=== PATIENT | female | born 1975 | race Caucasian/White ===

== ENCOUNTER 2016-05-28 17:01 | Emergency (ER) | payer BC ==
[~2016-05-28] VITALS: Ht 157.5 cm; Wt 75.4 kg
[2016-05-28 17:01] VITALS: TEMP 36.9; Ht 157.5 cm; Wt 75.4 kg
[~2016-05-28 17:01] MED LIST: ATV/1 PO; CLX20 PO; DIVA250T4 PO; PANT40TA PO; TRAZ50TA35 PO
[2016-05-28 17:14] VITALS: O2SAT 100
[2016-05-28] MEDS ORDERED: HYDROmorphone INJ 1 MG/ML SYR IV STA (17:22)
[2016-05-28 17:30] LABS: BASO % 1.5 %; BASO ABS # 0.11 K/uL (0-0.2); COMPLETE YES; EOS % 1.5 %; HEMATOCRIT 40.5 % (37-47); IG% 0.1 %; LYMPH % 39.7 %; LYMPH ABS # 2.96 K/uL (1.2-3.4); MEAN CELL VOLUME 97.1 fL (80-100); MEAN CORPUSCULAR HEMOGLOBIN 33.1 pg (25-34); MEAN CORPUSCULAR HGB CONC 34.1 g/dl (32-36); MEAN PLATELET VOLUME 10.4 fL (7.4-10.4); MONO % 5.1 %; NEUT % 52.1 %; PLATELET COUNT 329 K/uL (130-400); RED BLOOD COUNT 4.17 M/uL (4.2-5.4); WHITE BLOOD COUNT 7.45 K/uL (4.8-10.8)
--- NOTE | 2016-05-28 17:31 | EMERGENCY ROOM VISIT NOTE ---
History Report prepared by Sujit: Aniya Grey Under the Supervision of: Dr. Dolly Galvan D.O. First contact with patient: 17:12 Chief Complaint: CHEST PAIN Stated Complaint: HEADACHE, CHEST PAIN Nursing Triage Summary: Patient c/o of intermittent pain which started today at 1:30 pm. Pain radiates to back. Chest pain is reproducible with coughing. Patient c/o of stabbing-like headache and dizziness which began on " or Friday." Denies hx of CAD or AL. 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 The patient currently rates the pain as a 8/10 in severity. The patient states that today during work the chest pain began along with shortness of breath and back pain. The patient states that she had some unusual symptoms starting 4 days ago which included "ice pick" headaches and trouble speaking including not being able to get out the words she was trying to say. The patient states she originally thought her symptoms were stress and anxiety related due to work but states over the weekend and at work today she was not stressed. The patient states she has a history of migraines but states her headache the last few days has feel like an "ice pick which is unusual for her. The patient states she takes Celexa and Depakote for her headaches and has been taking it regularly but it has not helped her headache today. The patient denies any abdominal pain, leg cramping, leg swelling. The patient denies any chance of and states she had a hysterectomy 13 years ago. Source of History: patient Onset: 4 hours MECHANICAL SYSTEMS DESIGNER Position: chest Symptom Intensity: 8/10 Timing: intermittent Associated Symptoms: + SOB, + back pain, + headache ("ice pick"), No abdominal pain Note: Associated symptoms: trouble speaking. Patient denies leg cramping, leg swelling. Review of Systems See HPI for pertinent positives & negatives. A total of 10 systems reviewed and were otherwise negative. Past Medical & Surgical Medical Problems: (1) Abdominal pain (2) Degenerative disc disease (3) Headache (4) Lyme Disease (5) Migraine (6) Urinary tract infection Family History Cancer Diabetes mellitus FH: gallbladder disease FH: lung disease Heart disease Hypertension Kidney stones Social History Smoking Status: Current Every Day Smoker Alcohol Use: occasionally Marital Status: single Housing Status: lives with family Occupation Status: employed Current/Historical Medications Scheduled Citalopram (Citalopram Hydrobromide), 40 MG PO DAILY Divalproex Sodium (Divalproex Sodium ER), 750 MG PO HS Pantoprazole (Protonix), 40 MG PO DAILY Scheduled PRN Trazodone Hcl (Trazodone), 100 MG PO HS PRN for Sleep Allergies Coded Allergies: Ketorolac Tromethamine (Verified Allergy, Intermediate, HIVES, 05/28/16) Physical Exam Vital Signs Date Time Temp Pulse Resp B/P Pulse Ox O2 Delivery O2 Flow Rate FiO2 05/28/16 19:35 64 16 108/64 97 Room Air 05/28/16 18:19 67 18 119/76 96 Room Air 05/28/16 17:43 67 18 115/84 97 Room Air 05/28/16 17:21 67 05/28/16 17:14 100 Room Air 05/28/16 17:01 97 Room Air 05/28/16 17:01 36.9 66 14 138/84 97 Room Air Physical Exam HEENT: Head - normocephalic and atraumatic Pupils are equal, round, and reactive to light. Extraocular eye muscles are intact, and sclera are anicteric. Nose - moist nasal mucosa without discharge. Mouth - moist buccal mucosa. Oropharynx is nonerythematous and there is no tonsillar exudate or edema noted. Neck: Supple; no JVD, nuchal rigidity, cervical lymphadenopathy, or auscultated bruits. Heart: Regular rate and rhythm. There is a normal S1 and S2 with no murmurs, clicks, or gallops appreciated. Lungs: Clear to auscultation bilaterally with no wheezes, rales, or rhonchi. Abdomen: Soft, completely nontender, nondistended, with good bowel sounds. There are no palpable pulsatile masses or hepatosplenomegaly. There is no guarding, rigidity, or rebound noted. Extremities: No evidence of cyanosis, clubbing, or edema. There are easily palpable peripheral pulses. Skin: warm and dry with good turgor and no rashes. Neuro: Awake, alert and oriented to day time and place. The exam is nonfocal. Medical Decision & Procedures ER Provider Diagnostic Interpretation: CT results as stated below per my review and radiologist interpretation: CT SCAN OF THE BRAIN WITHOUT IV CONTRAST CLINICAL HISTORY: Headache. COMPARISON STUDY: CT of the brain dated 06/13/2013. TECHNIQUE: Unenhanced axial CT scan of the brain is performed from the vertex to the skull base. Automated dose control exposure was utilized. CT DOSE: 601.98 mGy.cm FINDINGS: Brain parenchyma: The brain parenchyma is normal in appearance. There is no hemorrhage, mass effect, or evidence of acute territorial ischemia by CT criteria. Gonzalez-white matter is preserved. No extra-axial fluid collection is seen. Ventricles, sulci, cisterns: Normal in configuration. Intracranial vasculature: The visualized intracranial vasculature at the skull base is normal in appearance. Calvarium: Unremarkable. Sinuses and mastoids: The visualized paranasal sinuses are clear. The mastoid air cells are well pneumatized. Orbits: The bony orbits are grossly intact. IMPRESSION: No acute intracranial abnormality. Electronically signed by: Jovan Negron M.D. 05/28/2016 6:01 PM Dictated Date/Time: 05/28/2016 6:00 PM X-ray results as stated below per interpretation by me and the radiologist: SINGLE VIEW CHEST CLINICAL HISTORY: Atypical chest pain. FINDINGS: An AP, portable, upright chest radiograph is compared to study dated 12/31/2015. The cardiomediastinal silhouette is unremarkable. Emphysema and chronic interstitial thickening are similar to previous. There is no airspace consolidation or pleural effusion. No pneumothorax is seen. The bony thorax is grossly intact. Fusion hardware is noted in the lower cervical spine. IMPRESSION: Emphysema with no acute cardiopulmonary abnormality. Electronically signed by: Jovan Negron M.D. 05/28/2016 6:06 PM Dictated Date/Time: 05/28/2016 6:05 PM Laboratory Results 05/28/16 17:14 Red Blood Count 4.17, Mean Corpuscular Volume 97.1, Mean Corpuscular Hemoglobin 33.1, Mean Corpuscular Hemoglobin Concent 34.1, Mean Platelet Volume 10.4, Neutrophils (%) (Auto) 52.1, Lymphocytes (%) (Auto) 39.7, Monocytes (%) (Auto) 5.1, Eosinophils (%) (Auto) 1.5, Basophils (%) (Auto) 1.5, Neutrophils # (Auto) 3.88, Lymphocytes # (Auto) 2.96, Monocytes # (Auto) 0.38, Eosinophils # (Auto) 0.11, Basophils # (Auto) 0.11 05/28/16 17:14 Test 05/28/16 17:14 05/28/16 18:00 White Blood Count 7.45 K/uL (4.8-10.8) Red Blood Count 4.17 M/uL (4.2-5.4) Hemoglobin 13.8 g/dL (12.0-16.0) Hematocrit 40.5 % (37-47) Mean Corpuscular Volume 97.1 fL (80-100) Mean Corpuscular Hemoglobin 33.1 pg (25-34) Mean Corpuscular Hemoglobin Concent 34.1 g/dl (32-36) Platelet Count 329 K/uL (130-400) Mean Platelet Volume 10.4 fL (7.4-10.4) Neutrophils (%) (Auto) 52.1 % Lymphocytes (%) (Auto) 39.7 % Monocytes (%) (Auto) 5.1 % Eosinophils (%) (Auto) 1.5 % Basophils (%) (Auto) 1.5 % Neutrophils # (Auto) 3.88 K/uL (1.4-6.5) Lymphocytes # (Auto) 2.96 K/uL (1.2-3.4) Monocytes # (Auto) 0.38 K/uL (0.11-0.59) Eosinophils # (Auto) 0.11 K/uL (0-0.5) Basophils # (Auto) 0.11 K/uL (0-0.2) RDW Standard Deviation 45.5 fL (36.4-46.3) RDW Coefficient of Variation 13.0 % (11.5-14.5) Immature Granulocyte % (Auto) 0.1 % Immature Granulocyte # (Auto) 0.01 K/uL (0.00-0.02) Anion Gap 7.0 mmol/L (3-11) Est Creatinine Clear Calc Drug Dose 75.6 ml/min Estimated GFR () 88.0 Estimated GFR (Non- 75.9 BUN/Creatinine Ratio 9.6 (10-20) Calcium Level 8.8 mg/dl (8.5-10.1) Total Bilirubin 0.2 mg/dl (0.2-1) Direct Bilirubin < 0.1 mg/dl (0-0.2) Aspartate Amino Transf (AST/SGOT) 8 U/L (15-37) Alanine Aminotransferase (ALT/SGPT) 17 U/L (12-78) Alkaline Phosphatase 65 U/L (45-117) Total Creatine Kinase 46 U/L (26-192) Creatine Kinase MB < 0.5 ng/ml (0.5-3.6) Creatine Kinase MB Ratio (0-3.0) Troponin I < 0.015 ng/ml (0-0.045) Total Protein 7.2 gm/dl (6.4-8.2) Albumin 3.6 gm/dl (3.4-5.0) D-Dimer < 190 ug/L FEU (0-500) Laboratory results per my review. Medications Administered Medications (Trade) Dose Ordered Sig/Monique Route Start Time Stop Time Status Last Admin Dose Admin Hydromorphone HCl (Dilaudid Inj) 1 mg NOW STAT IV 05/28/16 17:22 05/28/16 17:25 DC 05/28/16 17:42 1 MG Prochlorperazine Edisylate (Compazine Inj) 10 mg NOW STAT IV 05/28/16 18:22 05/28/16 18:24 DC 05/28/16 18:52 10 MG Diphenhydramine HCl (Benadryl Inj) 25 mg NOW STAT IV 05/28/16 18:22 05/28/16 18:24 DC 05/28/16 18:52 25 MG Acetaminophen (Tylenol Tab) 1,000 mg NOW STAT PO 05/28/16 18:22 05/28/16 18:24 DC 05/28/16 18:53 1,000 MG Procedure Medications Administered: Hydromorphone HCl Acetaminophen Diphenhydramine HCl Prochlorperazine Edisylate ECG Indication: chest pain Rate (beats per minute): 68 Rhythm: normal sinus Findings: no acute ischemic change, no ectopy ED Course 8: Past medical records reviewed. The patient was evaluated in room A3. A complete history and physical exam was performed. An IV lock was initiated and labs were drawn as above. 1721: Ordered Dilaudid Inj 1 mg IV. The patient went for a CT scan of her brain which was unremarkable. 1818: The nursing staff states that the patient is now nauseous and is still having pain. 1821: Ordered Tylenol Tab 1,000 mg PO, Benadryl Inj 25 mg IV, Compazine Inj 10 mg IV. 1909: Upon reevaluation, the patient was sleeping, and after waking her, she states she is feeling much better. I discussed findings and results with her. She verbalized agreement of the treatment plan. The patient was discharged home. Medical Decision The patient is a 40 year old female who presents to the ED with chest pain. Differential diagnosis includes CVA, TIA, anxiety, PE, aortic dissection, cardiac ischemia, pleurisy, migraine and intracranial hemorrhage. Labs: Negative D-Dimer Normal white count Stable H&H Negative cardiac enzymes Normal LFTs Glucose 109 Normal renal function This is a 40-year-old female patient who presents to the emergency department with chest pain, back pain, shortness of breath, and headache. The patient has a history of migraines but states that this headache was different. She described as a stabbing pain. She then became concerned with intermittent episodes of chest pain, back pain, and shortness of breath. She also noticed that she was having difficulty with expressing herself. CT scan of the brain was unremarkable. Her neuro exam was normal here. Chest x-ray showed no evidence of wide mediastinum. She had no stroke symptoms or TIA symptoms while here in the emergency department. I've asked the patient to follow-up with her PCP tomorrow for a recheck if her symptoms persisted. Impression Primary Impression: Headache Additional Impression: Atypical chest pain Scribe Attestation The scribe's documentation has been prepared under my direction and personally reviewed by me in its entirety. I confirm that the note above accurately reflects all work, treatment, procedures, and medical decision making performed by me. Departure Information Dispostion Home / Self-Care Referrals Renny Oakes M.D. (PCP) Forms HOME CARE DOCUMENTATION FORM, IMPORTANT VISIT INFORMATION Patient Instructions My [facility] Additional Instructions Return to the ER if symptoms worsen Rest. Limit stress and anxiety. Follow up tomorrow with your PCP for a recheck if you continue to have chest/ back pain or headache Problem Qualifiers
[2016-05-28 17:40] LABS: ALT/SGPT 17 U/L (12-78); AST/SGOT 8 U/L (15-37); BLOOD UREA NITROGEN 9 mg/dl (7-18); BUN/CREATININE RATIO 9.6 (10-20); CALCIUM 8.8 mg/dl (8.5-10.1); CARBON DIOXIDE 27 mmol/L (21-32); CHLORIDE 107 mmol/L (98-107); CREATININE 0.94 mg/dl (0.60-1.20); GLUCOSE 109 mg/dl (70-99); POTASSIUM 3.9 mmol/L (3.5-5.1); SODIUM 141 mmol/L (136-145)
[2016-05-28] MEDS ORDERED: CLX40 PO (17:45)
[2016-05-28] MEDS ORDERED: DPKSR250 PO (17:45)
[2016-05-28 17:46] LABS: ALKALINE PHOSPHATASE 65 U/L (45-117)
--- NOTE | 2016-05-28 18:03 | DIAGNOSTIC IMAGING REPORT ---
CT SCAN OF THE BRAIN WITHOUT IV CONTRAST CLINICAL HISTORY: Headache. COMPARISON STUDY: CT of the brain dated 06/13/2013. TECHNIQUE: Unenhanced axial CT scan of the brain is performed from the vertex to the skull base. Automated dose control exposure was utilized. CT DOSE: 601.98 mGy.cm FINDINGS: Brain parenchyma: The brain parenchyma is normal in appearance. There is no hemorrhage, mass effect, or evidence of acute territorial ischemia by CT criteria. Gonzalez-white matter is preserved. No extra-axial fluid collection is seen. Ventricles, sulci, cisterns: Normal in configuration. Intracranial vasculature: The visualized intracranial vasculature at the skull base is normal in appearance. Calvarium: Unremarkable. Sinuses and mastoids: The visualized paranasal sinuses are clear. The mastoid air cells are well pneumatized. Orbits: The bony orbits are grossly intact. IMPRESSION: No acute intracranial abnormality. Electronically signed by: Jovan Negron M.D. 05/28/2016 6:01 PM Dictated Date/Time: 05/28/2016 6:00 PM
--- NOTE | 2016-05-28 18:08 | DIAGNOSTIC IMAGING REPORT ---
SINGLE VIEW CHEST CLINICAL HISTORY: Atypical chest pain. FINDINGS: An AP, portable, upright chest radiograph is compared to study dated 12/31/2015. The cardiomediastinal silhouette is unremarkable. Emphysema and chronic interstitial thickening are similar to previous. There is no airspace consolidation or pleural effusion. No pneumothorax is seen. The bony thorax is grossly intact. Fusion hardware is noted in the lower cervical spine. IMPRESSION: Emphysema with no acute cardiopulmonary abnormality. Electronically signed by: Jovan Negron M.D. 05/28/2016 6:06 PM Dictated Date/Time: 05/28/2016 6:05 PM
[2016-05-28] MEDS ORDERED: DiphenhydrAMINE HCL 50 MG/ML VIAL IV STA (18:22)
[2016-05-28] MEDS ORDERED: ACETAMINOPHEN 500 MG TAB PO STA (18:22)
[2016-05-28] MEDS ORDERED: PROCHLORPERAZINE 5 MG/ML 2 ML VIAL IV STA (18:22)
[2016-05-28 19:35] VITALS: BP 108/64; PULSE 64; O2SAT 97
== END 2016-05-28 19:36 | disposition home or self-care (01) ==
LOC: EDBD 17:01 → C.EDA 17:02
DX: R51 Headache (principal); R07.89 Other chest pain; Z83.3 Family history of diabetes mellitus; Z82.49 Family history of ischemic heart disease and other diseases of the circulatory system; F17.200 Nicotine dependence, unspecified, uncomplicated; J43.9 Emphysema, unspecified

== ENCOUNTER 2016-08-16 21:28 | Emergency (ER) | payer BC ==
[~2016-08-16] VITALS: Ht 157.5 cm; Wt 72.3 kg
[~2016-08-16 21:28] MED LIST changes: -ATV/1 PO; -CLX20 PO; +CLX40 PO; -DIVA250T4 PO; +DPKSR250 PO
[2016-08-16 21:29] VITALS: TEMP 36.8; Ht 157.5 cm; Wt 72.3 kg
[2016-08-16 22:16] LABS: BASO % 1.5 %; BASO ABS # 0.12 K/uL (0-0.2); COMPLETE YES; EOS % 1.5 %; HEMATOCRIT 39.1 % (37-47); IG% 0.1 %; LYMPH % 49.6 %; LYMPH ABS # 4.02 K/uL (1.2-3.4); MEAN CORPUSCULAR HEMOGLOBIN 32.7 pg (25-34); MEAN CORPUSCULAR HGB CONC 34.8 g/dl (32-36); MEAN PLATELET VOLUME 10.5 fL (7.4-10.4); MONO % 7.5 %; NEUT % 39.8 %; PLATELET COUNT 352 K/uL (130-400); RED BLOOD COUNT 4.16 M/uL (4.2-5.4); WHITE BLOOD COUNT 8.11 K/uL (4.8-10.8)
[2016-08-16 22:25] LABS: URINE APPEARANCE CLEAR (CLEAR); URINE BILIRUBIN NEG (NEG); URINE COLOR YELLOW; URINE NITRITE NEG (NEG); URINE PH 7.5 (4.5-7.5); URINE SPECIFIC GRAVITY 1.009 (1.000-1.030); UROBILINOGEN NEG (NEG); ZZUR CULT IF INDIC CLEAN CATCH NO
[2016-08-16 22:28] LABS: MANUAL MICROSCOPIC REQUIRED? NO; REVIEW REQ? NO
[2016-08-16] MEDS ORDERED: ONDANSETRON INJ 2 MG/ML 2 ML VIAL IV STA (22:28)
[2016-08-16] MEDS ORDERED: MoRPHine SULFATE 10 MG/ML CARP/VIAL IV STA (22:28)
[2016-08-16] MEDS ORDERED: SODIUM CHLORIDE 0.9% 1000ML 1,000 ML IV STA (22:28)
[2016-08-16 22:42] LABS: ALT/SGPT 36 U/L (12-78); BLOOD UREA NITROGEN 10 mg/dl (7-18); BUN/CREATININE RATIO 9.8 (10-20); CALCIUM 9.8 mg/dl (8.5-10.1); CARBON DIOXIDE 25 mmol/L (21-32); CHLORIDE 108 mmol/L (98-107); GLUCOSE 90 mg/dl (70-99); POTASSIUM 3.6 mmol/L (3.5-5.1); SODIUM 141 mmol/L (136-145)
[2016-08-16 22:45] LABS: ALKALINE PHOSPHATASE 80 U/L (45-117); AST/SGOT 19 U/L (15-37)
[2016-08-16] MEDS ORDERED: HYDROmorphone INJ 0.5 MG/0.5 ML SYR IV STA (23:37)
[2016-08-17] MEDS ORDERED: HYDROmorphone INJ 0.5 MG/0.5 ML SYR IV STA (00:11)
[2016-08-17] MEDS ORDERED: OXYC1TAB3 PO (00:12)
[2016-08-17] MEDS ORDERED: ONDA4TAB10 SL (00:12)
--- NOTE | 2016-08-17 00:13 | EMERGENCY ROOM VISIT NOTE ---
History First contact with patient: 21:48 Chief Complaint: ABDOMINAL PAIN Stated Complaint: RUQ PAIN,NAUSEA,VOMITING,DIARRHEA Nursing Triage Summary: pt c/o riht upper abd pain with n/v/d History of Present Illness The patient is a 40 year old female who presents to the Emergency Room with complaints of right upper quadrant abdominal pain. The patient states that she has had this pain for the past 2 weeks. For the past 2 days, the pain has become more severe and has been radiating into the back. She states that she has been seen at the [facility] emergency Department and had a CT scan which showed possible gallbladder disease. She has a HIDA scan scheduled for the of this month. She states that the pain is constant, but is worse with eating. She rates the pain is 6/10 at baseline and states it increases to a 9/ 10 after eating. She states the pain as sharp. She has associated nausea, vomiting and diarrhea. She reports a history of a hysterectomy and laparoscopy. She denies any urinary symptoms, chest pain, shortness of breath or fevers. Review of Systems A complete 10 point review of systems was reviewed with the patient with pertinent positives and negatives as per history of present illness. All else were negative. Past Medical/Surgical History Medical Problems: (1) Abdominal pain (2) Degenerative disc disease (3) Headache (4) Lyme Disease (5) Migraine (6) Urinary tract infection Family History Cancer Diabetes mellitus FH: gallbladder disease FH: lung disease Heart disease Hypertension Kidney stones Social History Smoking Status: Current Every Day Smoker Alcohol Use: occasionally Marital Status: single Housing Status: lives with family Occupation Status: employed Current/Historical Medications Scheduled Citalopram (Citalopram Hydrobromide), 40 MG PO DAILY Ondasetron Odt (Zofran Odt), 4 MG SL Q6H Pantoprazole (Protonix), 40 MG PO DAILY Scheduled PRN Oxycodone Ir (Roxicodone Ir), 1-2 TAB PO Q4H PRN for Pain Allergies Coded Allergies: Ketorolac Tromethamine (Verified Allergy, Intermediate, HIVES, 08/16/16) NSAIDs (Unverified Adverse Reaction, Mild, ULCER, 08/16/16) Physical Exam Vital Signs Date Time Temp Pulse Resp B/P (MAP) Pulse Ox O2 Delivery O2 Flow Rate FiO2 08/17/16 00:23 65 16 119/83 96 Room Air 08/16/16 22:43 71 18 124/86 98 Room Air 08/16/16 21:29 36.8 77 18 140/95 99 Room Air Physical Exam VITALS: Vitals are noted on the nurse's note and reviewed by myself. Vital signs stable. GENERAL: This is a 40-year-old female, in no acute distress, nondiaphoretic, well-developed well-nourished. HEART: Regular rate and rhythm without murmurs gallops or rubs. LUNGS: Clear to auscultation bilaterally without wheezes, rales or rhonchi. ABDOMEN: Positive bowel sounds x 4. Soft, mild right upper quadrant tenderness to palpation. Negative Curtis sign. No guarding or rebound tenderness. NEURO: Patient was alert and oriented to person place and time. Medical Decision & Procedures ER Provider Diagnostic Interpretation: US GALLBLADDER: Liver is normal in size measuring 17 cm in length, 1.3 cm hypoechoic area within the right hepatic lobe which may represent small focal fatty infiltration. Distended gallbladder with sludge. No gallstones. No gallbladder wall thickening or pericholecystic fluid. Common duct measures 4 mm. Kidneys are normal size. No hydronephrosis. Visualized portion of the pancreas is unremarkable. Radiologist: Nimesh Sandoval MD Laboratory Results 08/16/16 22:10 Red Blood Count 4.16, Mean Corpuscular Volume 94.0, Mean Corpuscular Hemoglobin 32.7, Mean Corpuscular Hemoglobin Concent 34.8, Mean Platelet Volume 10.5, Neutrophils (%) (Auto) 39.8, Lymphocytes (%) (Auto) 49.6, Monocytes (%) (Auto) 7.5, Eosinophils (%) (Auto) 1.5, Basophils (%) (Auto) 1.5, Neutrophils # (Auto) 3.23, Lymphocytes # (Auto) 4.02, Monocytes # (Auto) 0.61, Eosinophils # (Auto) 0.12, Basophils # (Auto) 0.12 08/16/16 22:10 Test 08/16/16 21:48 08/16/16 22:10 Urine Color YELLOW Urine Appearance CLEAR (CLEAR) Urine pH 7.5 (4.5-7.5) Urine Specific [place] 1.009 (1.000-1.030) Urine Protein NEG (NEG) Urine Glucose (UA) NEG (NEG) Urine Ketones NEG (NEG) Urine Occult Blood NEG (NEG) Urine Nitrite NEG (NEG) Urine Bilirubin NEG (NEG) Urine Urobilinogen NEG (NEG) Urine Leukocyte Esterase NEG (NEG) White Blood Count 8.11 K/uL (4.8-10.8) Red Blood Count 4.16 M/uL (4.2-5.4) Hemoglobin 13.6 g/dL (12.0-16.0) Hematocrit 39.1 % (37-47) Mean Corpuscular Volume 94.0 fL (80-100) Mean Corpuscular Hemoglobin 32.7 pg (25-34) Mean Corpuscular Hemoglobin Concent 34.8 g/dl (32-36) Platelet Count 352 K/uL (130-400) Mean Platelet Volume 10.5 fL (7.4-10.4) Neutrophils (%) (Auto) 39.8 % Lymphocytes (%) (Auto) 49.6 % Monocytes (%) (Auto) 7.5 % Eosinophils (%) (Auto) 1.5 % Basophils (%) (Auto) 1.5 % Neutrophils # (Auto) 3.23 K/uL (1.4-6.5) Lymphocytes # (Auto) 4.02 K/uL (1.2-3.4) Monocytes # (Auto) 0.61 K/uL (0.11-0.59) Eosinophils # (Auto) 0.12 K/uL (0-0.5) Basophils # (Auto) 0.12 K/uL (0-0.2) RDW Standard Deviation 43.3 fL (36.4-46.3) RDW Coefficient of Variation 12.6 % (11.5-14.5) Immature Granulocyte % (Auto) 0.1 % Immature Granulocyte # (Auto) 0.01 K/uL (0.00-0.02) Anion Gap 8.0 mmol/L (3-11) Est Creatinine Clear Calc Drug Dose 69.6 ml/min Estimated GFR () 81.6 Estimated GFR (Non- 70.4 BUN/Creatinine Ratio 9.8 (10-20) Calcium Level 9.8 mg/dl (8.5-10.1) Total Bilirubin 0.2 mg/dl (0.2-1) Direct Bilirubin < 0.1 mg/dl (0-0.2) Aspartate Amino Transf (AST/SGOT) 19 U/L (15-37) Alanine Aminotransferase (ALT/SGPT) 36 U/L (12-78) Alkaline Phosphatase 80 U/L (45-117) Total Protein 7.2 gm/dl (6.4-8.2) Albumin 3.6 gm/dl (3.4-5.0) Lipase 409 U/L (73-393) Medications Administered Medications (Trade) Dose Ordered Sig/Monique Route Start Time Stop Time Status Last Admin Dose Admin Sodium Chloride 1,000 ml @ 999 mls/hr Q1H1M STAT IV 08/16/16 22:28 08/16/16 23:28 DC 08/16/16 22:38 999 MLS/HR Morphine Sulfate (MoRPHine SULFATE INJ) 6 mg NOW STAT IV 08/16/16 22:28 08/16/16 22:29 DC 08/16/16 22:38 6 MG Ondansetron HCl (Zofran Inj) 4 mg NOW STAT IV 08/16/16 22:28 08/16/16 22:29 DC 08/16/16 22:39 4 MG Hydromorphone HCl (Dilaudid Inj) 0.5 mg NOW STAT IV 08/16/16 23:37 08/16/16 23:38 DC 08/16/16 23:42 0.5 MG Hydromorphone HCl (Dilaudid Inj) 0.5 mg NOW STAT IV 08/17/16 00:11 08/17/16 00:12 DC 08/17/16 00:15 0.5 MG ED Course The patient was evaluated as above. Labs were drawn and IV access was obtained. Patient was medicated with 6 mg morphine IV and 4 mg Zofran IV. RUQ ultrasound was performed and read by statrad as above. Patient was reevaluated and had continued pain. She was then given 0.5 mg Dilaudid. Discharge instructions were reviewed with the patient. She did request something additional for pain prior to discharge and was given an additional 0.5 mg Dilaudid. The patient verbalized understanding of my assessment and treatment plan and was discharged home in good condition. Medical Decision Differential diagnosis includes biliary colic, pyelonephritis, kidney stones, among others. The patient is a 40-year-old female who presents today complaining of right upper quadrant pain which has been ongoing for 2 weeks. Records were obtained from her recent visit to [facility] emergency Department. At that time, the patient had a CT scan which was essentially negative. She followed up with her primary care provider in today scheduled her for an outpatient HIDA scan. Labs here revealed no leukocytosis, anemia or concerning electrolyte abnormalities. Right upper quadrant ultrasound did show a distended gallbladder with sludge, but no wall thickening or pericholecystic fluid to suggest acute cholecystitis. Pain was controlled here with IV medications and I do feel the patient may be discharged for outpatient workup. She was given a short course of pain medication and nausea medication. She was instructed to call her primary care provider for follow-up or return here if symptoms worsen. The patient's case was reviewed with Dr. Gibson, ED attending physician, who agreed with my assessment and treatment plan. Based on the patient's presentation and work up, I feel the patient is stable for outpatient treatment. The patient was educated to return to the emergency department for any worsening of their current condition or new/concerning symptoms. She will follow up with her PCP. Medication reconciliation: I attest that I have personally reviewed the patient 's current medication list. Blood Pressure Screening: Patient was found to have a slightly elevated blood pressure due to circumstances. I do not believe that the patient requires hypertension monitoring. Impression Primary Impression: RUQ abdominal pain Departure Information Dispostion Home / Self-Care Condition GOOD Prescriptions Ondasetron Odt (ZOFRAN ODT) 4 Mg Tab 4 MG SL Q6H for Nausea, #15 TAB Prov: Annalise Olmedo PA-C 08/17/16 Oxycodone Ir (Roxicodone Ir) 5 Mg Tab 1-2 TAB PO Q4H Y for Pain, #15 TAB For Initial Treatment Prov: Annalise Olmedo PA-C 08/17/16 Referrals Renny Oakes M.D. (PCP) Patient Instructions My [facility] Additional Instructions You have been treated in the Emergency Department your Abdominal Pain. Laboratory results and imaging studies have ruled out any emergent causes for your abdominal pain which would warrant admission or surgery. You have been prescribed Oxy IR to be used for pain control. This is a narcotic medication. You cannot drive or consume alcohol while on this medicine. This medicine should only be used for pain that cannot be controlled with over-the- counter pain medicines. You have been prescribed Zofran to be used for any nausea or vomiting. Take as prescribed. For pain control, you can use the following [id number] medicines (if >12 yo): - Regular strength (325mg/tab) Tylenol (acetaminophen) 2 tabs every 4-6 hours as needed. Do not exceed 12 tablets in a 24 hour period. Avoid taking more than 4 grams (4000 mg) of Tylenol per day. This includes any other sources of acetaminophen you may take on a regular basis. - Regular strength (200 mg/tab) Advil (ibuprofen) 1-2 tabs every 4-6 hours as needed. Do not exceed a dose of 3200 mg per day. Drink plenty of water and stay well hydrated. As with any trip to the Emergency Department, you should follow-up with your Primary Care Provider from today's visit. Return to the emergency department if your symptoms persist despite treatment plan outlined above or if the following symptoms occur: fevers, chills, worsening nausea/vomiting, blood in your stool or urine.
[2016-08-17 00:23] VITALS: BP 119/83; PULSE 65; O2SAT 96
--- NOTE | 2016-08-17 06:28 | DIAGNOSTIC IMAGING REPORT ---
BILIARY ULTRASOUND CLINICAL HISTORY: RUQ pain, vomiting COMPARISON STUDY: No previous studies for comparison. FINDINGS: The pancreas is slightly heterogeneous in appearance. There is a 15 mm slightly hypoechoic nodule within the right lobe of the liver. There is minimal sludge within the gallbladder. No calculi are visualized. There is no wall thickening. There is no ductal dilatation. Common bile duct measures 4 mm. There is no right-sided hydronephrosis. IMPRESSION: 1. Indeterminate 15 mm hypoechoic nodule within the right lobe of the liver 2. Minimal gallbladder sludge. No calculi identified 3. No evidence of ductal dilatation 4. Slightly heterogeneous pancreas. No focal masses identified Electronically signed by: Lazaro Berry M.D. 08/17/2016 6:26 AM Dictated Date/Time: 08/17/2016 6:24 AM
== END 2016-08-17 00:27 | disposition home or self-care (01) ==
LOC: C.EDB 21:29 → C.EDA 08-17 00:27
DX: R10.11 Right upper quadrant pain (principal); Z86.19 Personal history of other infectious and parasitic diseases; G43.909 Migraine, unspecified, not intractable, without status migrainosus; Z87.440 Personal history of urinary (tract) infections; Z80.9 Family history of malignant neoplasm, unspecified; Z83.3 Family history of diabetes mellitus; Z83.79 Family history of other diseases of the digestive system; Z83.6 Family history of other diseases of the respiratory system; Z82.49 Family history of ischemic heart disease and other diseases of the circulatory system; Z84.1 Family history of disorders of kidney and ureter; F17.210 Nicotine dependence, cigarettes, uncomplicated; Z79.899 Other long term (current) drug therapy

== ENCOUNTER 2016-08-19 11:42 | Emergency (ER) | payer BC ==
[~2016-08-19] VITALS: Ht 157.5 cm; Wt 72.0 kg
[~2016-08-19 11:42] MED LIST changes: -DPKSR250 PO; +ONDA4TAB10 SL; +OXYC1TAB3 PO; -TRAZ50TA35 PO
[2016-08-19 11:43] VITALS: TEMP 36.7; Ht 157.5 cm; Wt 72.0 kg
[2016-08-19] MEDS ORDERED: SODIUM CHLORIDE 0.9% 1000ML 1,000 ML IV ONE (12:30)
[2016-08-19] MEDS ORDERED: GI COCKTAIL PO ONE (12:30)
[2016-08-19] MEDS ORDERED: ALUMINUM/MAGNESIUM SUSP 30 ML UDC ONE (12:53)
[2016-08-19] MEDS ORDERED: LIDOCAINE HCL 2% VISC SOLN 20 ML UDC ONE (12:53)
[2016-08-19 13:03] LABS: BASO % 1.3 %; BASO ABS # 0.09 K/uL (0-0.2); COMPLETE YES; EOS % 1.6 %; HEMATOCRIT 38.9 % (37-47); IG% 0.1 %; LYMPH % 41.6 %; LYMPH ABS # 2.88 K/uL (1.2-3.4); MEAN CELL VOLUME 96.3 fL (80-100); MEAN CORPUSCULAR HEMOGLOBIN 32.7 pg (25-34); MEAN CORPUSCULAR HGB CONC 33.9 g/dl (32-36); MEAN PLATELET VOLUME 10.5 fL (7.4-10.4); MONO % 9.2 %; NEUT % 46.2 %; PLATELET COUNT 330 K/uL (130-400); RED BLOOD COUNT 4.04 M/uL (4.2-5.4); WHITE BLOOD COUNT 6.92 K/uL (4.8-10.8)
[2016-08-19 13:24] LABS: BUN/CREATININE RATIO 7.8 (10-20); CALCIUM 9.3 mg/dl (8.5-10.1); CREATININE 0.9 mg/dl (0.60-1.20); POTASSIUM 3.8 mmol/L (3.5-5.1)
--- NOTE | 2016-08-19 15:04 | DIAGNOSTIC IMAGING REPORT ---
PA CHEST WITH ABDOMINAL SERIES CLINICAL HISTORY: Right upper quadrant abdominal pain. FINDINGS: A PA chest radiograph is compared to study dated 05/28/2016. The cardiomediastinal silhouette is unremarkable. The lungs and pleural spaces are clear. No pneumothorax is seen. The bony thorax is grossly intact. Fusion hardware is seen in the lower cervical spine. Supine and erect abdominal radiographs are compared to study dated 04/19/2014. There is a nonobstructed abdominal bowel gas pattern. No evidence of intraperitoneal free air is seen. There is mild to moderate colonic fecal retention. There are no abnormal abdominal calcifications. The lumbosacral spine and bony pelvis appear intact. Mild lumbar levoscoliosis is observed. IMPRESSION: 1. No active disease in the chest. 2. Nonobstructed abdominal bowel gas pattern. Electronically signed by: Jovan Negron M.D. 08/19/2016 3:02 PM Dictated Date/Time: 08/19/2016 3:01 PM
[2016-08-19 15:19] LABS: PREG INTERNAL NEGATIVE QC NEG CLEAR BACKGROUND; PREG INTERNAL POSITIVE QC POS CONTROL LINE
[2016-08-19 15:28] LABS: URINE APPEARANCE CLEAR (CLEAR); URINE BILIRUBIN NEG (NEG); URINE COLOR YELLOW; URINE NITRITE NEG (NEG); URINE PH 5.5 (4.5-7.5); UROBILINOGEN NEG (NEG); ZZUR CULT IF INDIC CLEAN CATCH NO
[2016-08-19 15:34] LABS: MANUAL MICROSCOPIC REQUIRED? NO; REVIEW REQ? NO
[2016-08-19 15:42] LABS: BENZODIAZEPINE, URINE NEG (NEG); COCAINE,URINE NEG (NEG); PHENCYCLIDINE, URINE NEG (NEG)
--- NOTE | 2016-08-19 15:44 | DIAGNOSTIC IMAGING REPORT ---
GALLBLADDER-ABD LIMITED HISTORY:40 yearsFemaleRUQ abd pain COMPARISON: 08/16/2016 upper quadrant ultrasound. TECHNIQUE: Multiple real-time sonographic images of the abdominal right upper quadrant were obtained assessing grayscale appearance and color Doppler flow. FINDINGS: The imaged pancreas appears to be slightly heterogeneous without focal mass. Focal hypoechoic lesion within the right lobe of the liver is again seen, 1.5 x 1.3 x 1.4 cm without internal vascularity documented, previously measuring 1.3 x 1.5 x 1.4 cm. There is increased echogenicity with poor through transmission of the liver. No biliary ductal dilatation. No shadowing cholelithiasis, gallbladder wall thickening or pericholecystic fluid. Trace gallbladder sludge is noted. The common bile duct measures 0.4 cm. IMPRESSION: 1. Gallbladder sludge without cholelithiasis or sonographic evidence of acute cholecystitis. 2. Fatty infiltration of the liver. 3. 1.5 cm nonspecific hypoechoic lesion of the right hepatic lobe. 4. Slightly heterogeneous appearance of the pancreas. The above report was generated using voice recognition software. It may contain grammatical, syntax or spelling errors. Electronically signed by: Abe Marin 08/19/2016 3:42 PM Dictated Date/Time: 08/19/2016 3:39 PM
[2016-08-19 16:40] VITALS: BP 98/67; PULSE 78; O2SAT 98
--- NOTE | 2016-08-19 18:48 | EMERGENCY ROOM VISIT NOTE ---
History First contact with patient: 12:09 Chief Complaint: ABDOMINAL PAIN Stated Complaint: RUQ PAIN, NAUSEA, VOMITING, DIARRHEA Nursing Triage Summary: pt to the ED with c/o RUQ pain for the past week and can't take the pain anymore History of Present Illness The patient is a 40 year old female who presents to the Emergency Room with complaints of persistent right upper quadrant abdominal pain. The patient has been seen several times at multiple emergency departments over the past month with this complaint. The patient states that her pain continues to progress and worsen. She is having a hard time eating because of her pain. She states the discomfort is distinctly in the right upper quadrant with occasional epigastric pain. She has followed with gastroenterology previously and her last upper GI was 3 months ago which showed nonbleeding ulcers. The patient presents to the emergency department here after being evaluated for this at [facility] 12 hours ago. The patient had blood work and CT scan of the abdomen and pelvis without acute findings. The patient evidently has an outpatient HIDA scan scheduled on September 03, 15 days from now. The patient has not taken anything [id number] for her symptoms. She is on daily Protonix. She rates her pain a 9/10. Review of Systems More than 10 systems were reviewed and otherwise negative with the exception of history of present illness. Past Medical/Surgical History Medical Problems: (1) Abdominal pain (2) Degenerative disc disease (3) Headache (4) Lyme Disease (5) Migraine (6) Urinary tract infection Family History Cancer Diabetes mellitus FH: gallbladder disease FH: lung disease Heart disease Hypertension Kidney stones Social History Smoking Status: Current Every Day Smoker Alcohol Use: occasionally Marital Status: single Housing Status: lives with family Occupation Status: employed Current/Historical Medications Scheduled Citalopram (Citalopram Hydrobromide), 40 MG PO QAM Ondasetron Odt (Zofran Odt), 4 MG SL Q6H Pantoprazole (Protonix), 40 MG PO QAM Scheduled PRN Oxycodone Ir (Roxicodone Ir), 1-2 TAB PO Q4H PRN for Pain Allergies Coded Allergies: Ketorolac Tromethamine (Verified Allergy, Intermediate, HIVES, 08/19/16) NSAIDs (Unverified Adverse Reaction, Mild, ULCER, 08/19/16) Physical Exam Vital Signs Date Time Temp Pulse Resp B/P (MAP) Pulse Ox O2 Delivery O2 Flow Rate FiO2 08/19/16 16:40 78 16 98/67 98 08/19/16 15:00 70 16 94/62 98 Room Air 08/19/16 13:01 63 15 99/68 99 Room Air 08/19/16 11:43 36.7 67 16 116/73 92 Room Air Pain Rating (0-10): 4.0 Physical Exam VITALS: Vitals are noted on the nurse's note and reviewed by myself. Vital signs stable. GENERAL: Well-developed, well-nourished, female, who is in no acute distress and resting comfortably. Patient is cooperative with the examination. HEAD: Normocephalic atraumatic. HEART: Regular rate and rhythm without murmurs gallops or rubs. LUNGS: Clear to auscultation bilaterally without wheezes, rales or rhonchi. No retractions or accessory muscle use. ABDOMEN: Positive normal bowel sounds x 4. Deep and firm pressure with auscultation does not elicit a tenderness response throughout the abdomen. The patient does guard against light palpation particularly in the right upper quadrant. No CVA tenderness. MUSCULOSKELETAL: No muscle atrophy, erythema, or edema noted. Full range of motion without joint tenderness in all extremities. Medical Decision & Procedures ER Provider Diagnostic Interpretation: GALLBLADDER-ABD LIMITED HISTORY:40 yearsFemaleRUQ abd pain COMPARISON: 08/16/2016 upper quadrant ultrasound. TECHNIQUE: Multiple real-time sonographic images of the abdominal right upper quadrant were obtained assessing grayscale appearance and color Doppler flow. FINDINGS: The imaged pancreas appears to be slightly heterogeneous without focal mass. Focal hypoechoic lesion within the right lobe of the liver is again seen, 1.5 x 1.3 x 1.4 cm without internal vascularity documented, previously measuring 1.3 x 1.5 x 1.4 cm. There is increased echogenicity with poor through transmission of the liver. No biliary ductal dilatation. No shadowing cholelithiasis, gallbladder wall thickening or pericholecystic fluid. Trace gallbladder sludge is noted. The common bile duct measures 0.4 cm. IMPRESSION: 1. Gallbladder sludge without cholelithiasis or sonographic evidence of acute cholecystitis. 2. Fatty infiltration of the liver. 3. 1.5 cm nonspecific hypoechoic lesion of the right hepatic lobe. 4. Slightly heterogeneous appearance of the pancreas. PA CHEST WITH ABDOMINAL SERIES CLINICAL HISTORY: Right upper quadrant abdominal pain. FINDINGS: A PA chest radiograph is compared to study dated 05/28/2016. The cardiomediastinal silhouette is unremarkable. The lungs and pleural spaces are clear. No pneumothorax is seen. The bony thorax is grossly intact. Fusion hardware is seen in the lower cervical spine. Supine and erect abdominal radiographs are compared to study dated 04/19/2014. There is a nonobstructed abdominal bowel gas pattern. No evidence of intraperitoneal free air is seen. There is mild to moderate colonic fecal retention. There are no abnormal abdominal calcifications. The lumbosacral spine and bony pelvis appear intact. Mild lumbar levoscoliosis is observed. IMPRESSION: 1. No active disease in the chest. 2. Nonobstructed abdominal bowel gas pattern. Laboratory Results 08/19/16 12:44 Red Blood Count 4.04, Mean Corpuscular Volume 96.3, Mean Corpuscular Hemoglobin 32.7, Mean Corpuscular Hemoglobin Concent 33.9, Mean Platelet Volume 10.5, Neutrophils (%) (Auto) 46.2, Lymphocytes (%) (Auto) 41.6, Monocytes (%) (Auto) 9.2, Eosinophils (%) (Auto) 1.6, Basophils (%) (Auto) 1.3, Neutrophils # (Auto) 3.19, Lymphocytes # (Auto) 2.88, Monocytes # (Auto) 0.64, Eosinophils # (Auto) 0.11, Basophils # (Auto) 0.09 08/19/16 12:44 Test 08/19/16 12:44 08/19/16 14:45 White Blood Count 6.92 K/uL (4.8-10.8) Red Blood Count 4.04 M/uL (4.2-5.4) Hemoglobin 13.2 g/dL (12.0-16.0) Hematocrit 38.9 % (37-47) Mean Corpuscular Volume 96.3 fL (80-100) Mean Corpuscular Hemoglobin 32.7 pg (25-34) Mean Corpuscular Hemoglobin Concent 33.9 g/dl (32-36) Platelet Count 330 K/uL (130-400) Mean Platelet Volume 10.5 fL (7.4-10.4) Neutrophils (%) (Auto) 46.2 % Lymphocytes (%) (Auto) 41.6 % Monocytes (%) (Auto) 9.2 % Eosinophils (%) (Auto) 1.6 % Basophils (%) (Auto) 1.3 % Neutrophils # (Auto) 3.19 K/uL (1.4-6.5) Lymphocytes # (Auto) 2.88 K/uL (1.2-3.4) Monocytes # (Auto) 0.64 K/uL (0.11-0.59) Eosinophils # (Auto) 0.11 K/uL (0-0.5) Basophils # (Auto) 0.09 K/uL (0-0.2) RDW Standard Deviation 44.8 fL (36.4-46.3) RDW Coefficient of Variation 12.8 % (11.5-14.5) Immature Granulocyte % (Auto) 0.1 % Immature Granulocyte # (Auto) 0.01 K/uL (0.00-0.02) Anion Gap 6.0 mmol/L (3-11) Est Creatinine Clear Calc Drug Dose 77.2 ml/min Estimated GFR () 92.7 Estimated GFR (Non- 80.0 BUN/Creatinine Ratio 7.8 (10-20) Calcium Level 9.3 mg/dl (8.5-10.1) Total Bilirubin 0.2 mg/dl (0.2-1) Aspartate Amino Transf (AST/SGOT) 17 U/L (15-37) Alanine Aminotransferase (ALT/SGPT) 30 U/L (12-78) Alkaline Phosphatase 70 U/L (45-117) Total Protein 6.8 gm/dl (6.4-8.2) Albumin 3.4 gm/dl (3.4-5.0) Globulin 3.4 gm/dl (2.5-4.0) Albumin/Globulin Ratio 1.0 (0.9-2) Lipase 154 U/L (73-393) Urine Color YELLOW Urine Appearance CLEAR (CLEAR) Urine pH 5.5 (4.5-7.5) Urine Specific Ballinger 1.010 (1.000-1.030) Urine Protein NEG (NEG) Urine Glucose (UA) NEG (NEG) Urine Ketones NEG (NEG) Urine Occult Blood TRACE (NEG) Urine Nitrite NEG (NEG) Urine Bilirubin NEG (NEG) Urine Urobilinogen NEG (NEG) Urine Leukocyte Esterase NEG (NEG) Urine WBC (Auto) 1-5 /hpf (0-5) Urine RBC (Auto) 0-4 /hpf (0-4) Urine Hyaline Casts (Auto) 0 /lpf (0-5) Urine Epithelial Cells (Auto) 10-20 /lpf (0-5) Urine Bacteria (Auto) NEG (NEG) Urine Test NEG (NEG) Urine Opiates Screen POS (NEG) Urine Methadone, Qualitative NEG (NEG) Urine Barbiturates NEG (NEG) Urine Phencyclidine (PCP) Level NEG (NEG) Ur Amphetamine/Methamphetamine NEG (NEG) MDMA (Ecstasy) Screen NEG (NEG) Urine Benzodiazepines Screen NEG (NEG) Urine Cocaine Metabolite NEG (NEG) Urine Marijuana (THC) NEG (NEG) Medications Administered Medications (Trade) Dose Ordered Sig/Monique Route Start Time Stop Time Status Last Admin Dose Admin Sodium Chloride 1,000 ml @ 999 mls/hr Q1H1M ONCE IV 08/19/16 12:30 08/19/16 13:30 DC 08/19/16 12:58 999 MLS/HR Miscellaneous Medication (Gi Cocktail) 24 ml NOW ONCE PO 08/19/16 12:30 08/19/16 12:31 DC 08/19/16 12:30 24 ML Lidocaine HCl (Viscous Lidocaine 2% Soln) 20 ml STK-MED ONCE .ROUTE 08/19/16 12:53 08/19/16 12:54 DC 08/19/16 12:56 20 ML Al Hydroxide/Mg Hydroxide (Maalox Susp) 30 ml STK-MED ONCE .ROUTE 08/19/16 12:53 08/19/16 12:54 DC 08/19/16 12:56 30 ML ED Course Physical exam and history were performed. Nursing notes and EMR were reviewed. Medication list was reviewed. Patient appears to have reports of right upper quadrant abdominal pain for the past several weeks. I was able to review the [employer] EMR, and she has been evaluated in [place] 4 times in the past 4 weeks with this complaint. Today is her second visit of the week to this facility. She has had outpatient CT scan and ultrasound both within the past 3 days. The examination is concerning for malingering. On her last ultrasound she did have biliary sludge, and because of this I did elect to establish an IV and draw basic labs. Ultrasound and plain films were performed. The patient was hydrated with normal saline and given a GI cocktail. The patient's blood work is as above and was reviewed. She does not have a significantly elevated white blood cell count, gross anemia, bandemia, or significant electrolyte imbalance. Lipase and transaminases are nondiagnostic. Plain films are without acute findings. Ultrasound continues to show biliary sludge without acute cholecystitis. Overall the patient appears stable for discharge home. I have concern the patient is exhibiting drug-seeking behavior. She is traveling from [place] to receive care, and does not have acute objective findings. She did request pain medication several times, and was offered Tylenol which she refused. The patient will need to follow with GI as well as her surgeon. I do not feel comfortable giving her narcotic medication, and she is allegedly allergic to NSAIDs. The patient may continue Tylenol and her Protonix. She was invited to the emergency department anytime and was given a note for work today. The chart was completed utilizing [employer] Speech Voice Recognition Software. Grammatical errors, random word insertions, pronoun errors, and incomplete sentences are an occasional consequence of this system due to software limitations, ambient noise, and hardware issues. Any formal questions or concerns about the content, text, or information contained within the body of this dictation should be directly addressed to the provider for clarification. . Medical Decision Differential diagnosis: Etiologies such as appendicitis, diverticulitis, PUD, biliary pathology, UTI, pancreatitis, obstruction, mesenteric ischemia, aortic pathology, infections, inflammatory bowel disease, renal colic, as well as others were entertained. Impression Primary Impression: RUQ abdominal pain Departure Information Dispostion Home / Self-Care Condition GOOD Referrals Renny Oakes M.D. (PCP) Forms Call Back Authorization, HOME CARE DOCUMENTATION FORM, IMPORTANT VISIT INFORMATION Patient Instructions My [facility] Additional Instructions You were seen and evaluated today on an emergency basis only. This is not a substitute for, or an effort to provide, complete comprehensive medical care. It is not possible to recognize and treat all injuries or illnesses in a single emergency department visit. For this reason it is recommended that you followup with your primary care physician and double end tenoner setter by telephone tomorrow to arrange appropriate follow-up appointments. Emergency Department is not able to treat ongoing and chronic pain. Continue your at-home medications as prescribed You are welcome to return to the emergency department anytime with new, worsening, or concerning symptoms.
[2016-08-22 12:21] LABS: COD UR NEGATIVE NG/ML (CUTOFF=50); HYDROCOD UR NEGATIVE NG/ML (CUTOFF=50); HYDROMOR UR 140 NG/ML (CUTOFF=50); MORPHINE UR NEGATIVE NG/ML (CUTOFF=50); NORHYDROCODONE CONF UR NEGATIVE NG/ML (CUTOFF=50); OXYMORPH UR 113 NG/ML (CUTOFF=50)
== END 2016-08-19 16:40 | disposition home or self-care (01) ==
LOC: C.EDB 11:43 → C.EDC 16:40
DX: R10.11 Right upper quadrant pain (principal); F17.200 Nicotine dependence, unspecified, uncomplicated; Z87.440 Personal history of urinary (tract) infections; Z79.899 Other long term (current) drug therapy; Z88.8 Allergy status to other drugs, medicaments and biological substances; Z80.9 Family history of malignant neoplasm, unspecified; Z83.3 Family history of diabetes mellitus; Z83.79 Family history of other diseases of the digestive system; Z82.49 Family history of ischemic heart disease and other diseases of the circulatory system; Z84.1 Family history of disorders of kidney and ureter

== ENCOUNTER 2017-04-13 23:03 | Emergency (ER) | payer BC ==
[~2017-04-13] VITALS: Ht 157.5 cm; Wt 71.6 kg
[~2017-04-13 23:03] MED LIST changes: -ONDA4TAB10 SL; -OXYC1TAB3 PO
[2017-04-13 23:12] VITALS: TEMP 36.8; Ht 157.5 cm; Wt 71.6 kg
[2017-04-13] MEDS ORDERED: DiphenhydrAMINE HCL 50 MG/ML VIAL IV STA (23:16)
[2017-04-13] MEDS ORDERED: METOCLOPRAMIDE HCL INJ 5 MG/ML 2 ML VIAL IV STA (23:16)
[2017-04-13] MEDS ORDERED: SODIUM CHLORIDE 0.9% 1000ML 1,000 ML IV STA (23:16)
[2017-04-13] MEDS ORDERED: PROCHLORPERAZINE 5 MG/ML 2 ML VIAL IV STA (23:21)
[2017-04-13] MEDS ORDERED: MAGNESIUM SULFATE 1GM / D5W 1 GM BAG IV STA (23:21)
[2017-04-13 23:35] LABS: BASO % 0.1 %; BASO ABS # 0.01 K/uL (0-0.2); HEMATOCRIT 37.3 % (37-47); HEMOGLOBIN 12.8 g/dL (12.0-16.0); LYMPH % 12.2 %; LYMPH ABS # 2.04 K/uL (1.2-3.4); MEAN CORPUSCULAR HEMOGLOBIN 32.2 pg (25-34); MEAN CORPUSCULAR HGB CONC 34.3 g/dl (32-36); MEAN PLATELET VOLUME 9.9 fL (7.4-10.4); MONO ABS # 0.33 K/uL (0.11-0.59); NEUT % 85.1 %; NEUT ABS # 14.24 K/uL (1.4-6.5); PLATELET COUNT 387 K/uL (130-400); RED CELL DISTRIBUTION WIDTH CV 13.4 % (11.5-14.5); RED CELL DISTRIBUTION WIDTH SD 45.9 fL (36.4-46.3); WHITE BLOOD COUNT 16.72 K/uL (4.8-10.8)
[2017-04-13 23:53] LABS: CALCIUM 8.7 mg/dl (8.5-10.1); CREATININE 0.88 mg/dl (0.60-1.20); POTASSIUM 3.7 mmol/L (3.5-5.1)
[2017-04-14 00:49] VITALS: BP 118/81; PULSE 78; O2SAT 96
--- NOTE | 2017-04-14 04:36 | EMERGENCY ROOM VISIT NOTE ---
History First contact with patient: 23:16 Chief Complaint: HEADACHE Stated Complaint: MIGRAINE, PAIN DOWN NECK/BACK History of Present Illness The patient is a 41 year old female who presents to the Emergency Room with complaints of headache for the past 4 days who has been at [facility] twice today and yesterday. Patient received steroids with Reglan and Benadryl and Zofran. She has CT scan this morning that was negative. She follows with Dr. Stafford. Patient has a history of migraines and symptoms feel similar. She describes a headache as throbbing, ranging severity 8 out of 10 throughout the temporal region similar to prior. It does not radiate. Nothing makes it better or worse. Patient denies chest pain, dyspnea, fever, chills, cold symptoms, neck stiffness, localized weakness, vision problems. She is tolerating p.o. fluids and food. Review of Systems An 10 system review of systems was completed with positives and pertinent negatives listed in the HPI. Past Medical/Surgical History Medical Problems: (1) Abdominal pain (2) Degenerative disc disease (3) Headache (4) Lyme Disease (5) Migraine (6) Urinary tract infection Family History Cancer Diabetes mellitus FH: gallbladder disease FH: lung disease Heart disease Hypertension Kidney stones Social History Smoking Status: Current Every Day Smoker Alcohol Use: occasionally Marital Status: single Housing Status: lives with family Occupation Status: employed Current/Historical Medications Scheduled Citalopram (Citalopram Hydrobromide), 40 MG PO QAM Pantoprazole (Protonix), 40 MG PO QAM Physical Exam Vital Signs Date Time Temp Pulse Resp B/P (MAP) Pulse Ox O2 Delivery O2 Flow Rate FiO2 04/14/17 00:49 78 18 118/81 96 04/14/17 00:26 78 18 118/81 96 Room Air 04/13/17 23:12 36.8 80 18 143/90 95 Room Air Physical Exam VITALS: Vitals are noted on the nurse's note and reviewed by myself. Vital signs stable. GENERAL: Pleasant female, in no acute distress, nondiaphoretic, well-developed well-nourished. SKIN: The skin was without rashes, erythema, edema, or bruising. There is no tenting of the skin. Capillary reflex less than 2 seconds. HEAD: Normocephalic atraumatic. EARS: External auditory canals clear, tympanic membranes pearly jamil without erythema or effusion bilaterally. EYES: Pupils equal round and reactive to light and accommodation. Conjunctivae without injection, sclerae without icterus. Extraocular movements intact. NOSE: Patent, turbinates without inflammation or discharge. No sinus tenderness. MOUTH: Mucous membranes moist. Pharynx without erythema or exudate. Uvula midline. Airway patent. Tongue does not deviate. NECK: Supple without nuchal rigidity. No lymphadenopathy. No thyromegaly. Cervical spine is nontender. No JVD. HEART: Regular rate and rhythm without murmurs gallops or rubs. LUNGS: Clear to auscultation bilaterally without wheezes, rales or rhonchi. No retractions or accessory muscle use. ABDOMEN: Positive bowel sounds x 4. Normal tympanic percussion. Soft, nontender, without masses or organomegaly. Curtis sign negative. No guarding or rebound tenderness. No CVA tenderness MUSCULOSKELETAL: No muscle atrophy, erythema, or edema noted. NEURO: Patient was alert and oriented to person place and time. Normal sensation to light and sharp touch. No focal neurological deficits. Medical Decision & Procedures Laboratory Results 04/13/17 23:25 Red Blood Count 3.97, Mean Corpuscular Volume 94.0, Mean Corpuscular Hemoglobin 32.2, Mean Corpuscular Hemoglobin Concent 34.3, Mean Platelet Volume 9.9, Neutrophils (%) (Auto) 85.1, Lymphocytes (%) (Auto) 12.2, Monocytes (%) (Auto) 2.0, Eosinophils (%) (Auto) 0.0, Basophils (%) (Auto) 0.1, Neutrophils # (Auto) 14.24, Lymphocytes # (Auto) 2.04, Monocytes # (Auto) 0.33, Eosinophils # (Auto) 0.00, Basophils # (Auto) 0.01 04/13/17 23:25 Test 04/13/17 23:25 White Blood Count 16.72 K/uL (4.8-10.8) Red Blood Count 3.97 M/uL (4.2-5.4) Hemoglobin 12.8 g/dL (12.0-16.0) Hematocrit 37.3 % (37-47) Mean Corpuscular Volume 94.0 fL (80-100) Mean Corpuscular Hemoglobin 32.2 pg (25-34) Mean Corpuscular Hemoglobin Concent 34.3 g/dl (32-36) Platelet Count 387 K/uL (130-400) Mean Platelet Volume 9.9 fL (7.4-10.4) Neutrophils (%) (Auto) 85.1 % Lymphocytes (%) (Auto) 12.2 % Monocytes (%) (Auto) 2.0 % Eosinophils (%) (Auto) 0.0 % Basophils (%) (Auto) 0.1 % Neutrophils # (Auto) 14.24 K/uL (1.4-6.5) Lymphocytes # (Auto) 2.04 K/uL (1.2-3.4) Monocytes # (Auto) 0.33 K/uL (0.11-0.59) Eosinophils # (Auto) 0.00 K/uL (0-0.5) Basophils # (Auto) 0.01 K/uL (0-0.2) RDW Standard Deviation 45.9 fL (36.4-46.3) RDW Coefficient of Variation 13.4 % (11.5-14.5) Immature Granulocyte % (Auto) 0.6 % Immature Granulocyte # (Auto) 0.10 K/uL (0.00-0.02) Anion Gap 6.0 mmol/L (3-11) Est Creatinine Clear Calc Drug Dose 78.0 ml/min Estimated GFR () 94.6 Estimated GFR (Non- 81.6 BUN/Creatinine Ratio 15.1 (10-20) Calcium Level 8.7 mg/dl (8.5-10.1) Human Chorionic Gonadotropin, Qual NEG (NEG) Medications Administered Medications (Trade) Dose Ordered Sig/Monique Route Start Time Stop Time Status Last Admin Dose Admin Diphenhydramine HCl (Benadryl Inj) 25 mg NOW STAT IV 04/13/17 23:16 04/13/17 23:17 DC 04/13/17 23:30 25 MG Sodium Chloride 1,000 ml @ 999 mls/hr Q1H1M STAT IV 04/13/17 23:16 04/14/17 00:16 DC 04/13/17 23:30 999 MLS/HR Prochlorperazine Edisylate (Compazine Inj) 10 mg NOW STAT IV 04/13/17 23:21 04/13/17 23:23 DC 04/13/17 23:30 10 MG Magnesium Sulfate (Magnesium Sulfate) 1 gm NOW STAT IV 04/13/17 23:21 04/13/17 23:23 DC 04/13/17 23:30 1 GM ED Course Prior records/ancillary studies reviewed. Additional history obtained from family. Triage Nursing notes reviewed. The patient's history was concerning for headache. Differential diagnosis: Etiologies such as migraine headache, meningitis, sinusitis, CO exposure, ICH, SAH, infection, tumor, headache, sinus thrombosis, arterial dissection, as well as others were entertained. Physical examination findings: As above. Non-focal. ER treatment provided: Magnesium, Compazine, Benadryl, IV fluids On reassessment the patient felt better. Diagnostics interpreted by me: I obtain the records from [facility] and reviewed the brain CT that was negative and the medications that were given. Patient was given 2 rounds of steroids. The labs revealed leukocytosis, most likely from recent steroid use This appears to be consistent with migraine. Patient is a long-standing history of this. She was neurovascularly and neurologically intact. She had no signs of meningitis. She is well-appearing. She is advised to follow-up with her neurologist in a few days here in the ER sooner for headache, fevers, neck stiffness, worsening signs or symptoms or as needed.. By the evaluation outlined above emergent etiologies such as meningitis, sinusitis, CO exposure, ICH, SAH, infection, temporal arteritis, tumor, sinus thrombosis, arterial dissection, as well as others were deemed relatively unlikely. The pt informed about the findings as listed above. All questions were answered and pleased with the treatment. Return instructions were outlined and the patient was discharged in stable condition. Referral: The patient was referred back to their primary care physician or neurologist for follow-up in 2 to 3 days for a recheck of the current condition. The chart was completed utilizing [employer] Speech voice recognition software. Grammatical errors, random word insertions, pronoun errors, and incomplete sentences are an occassional consequence of this system due to software limitations, ambient noise, and hardware issues. Any formal questions or concerns about the content, text, or information contained within the body of this dictation should be directly addressed to the physician critical care physician assistant for clarification. Medical Decision As above Medication Reconcilliation Current Medication List: was personally reviewed by me Blood Pressure Screening Patient's blood pressure: Normal blood pressure Impression Primary Impression: Migraine Departure Information Dispostion Home / Self-Care Condition GOOD Referrals Renny Oakes M.D. (PCP) Forms HOME CARE DOCUMENTATION FORM, IMPORTANT VISIT INFORMATION Patient Instructions Migraine Stages Tx, My [facility] Additional Instructions DO NOT drive, drink alcohol, operate machinery, or perform dangerous activities today. You were given medications in the ER that can affect your ability to safely function or operate a vehicle. Rest today in a quiet, peaceful, dark environment and get a full 8-10 hrs of sleep tonight. Avoid loud noises, smoke/smoking, alcohol, bright lights, stress, or physical exertion today to minimize the chance the headache may return. Continue current medications. Acetaminophen(Tylenol) may be used for fever or pain. Use 1000mg every six hours as needed. Avoid using more than 3000mg in a 24 hour period. Return to the ER for passing out, worsening headache, vision problems, neck stiffness/pain, fevers, vomiting, worsening of your condition, or as needed. Follow up with your primary physician and/or a neurologist in 2-3 days for a recheck of your current condition. Problem Qualifiers Primary Impression: Migraine Migraine type: without aura Status migrainosus presence: without status migrainosus Intractability: not intractable Qualified Codes: G43.009 - Migraine without aura, not intractable, without status migrainosus
== END 2017-04-14 00:45 | disposition home or self-care (01) ==
LOC: C.EDB 23:05 → C.EDC 04-14 00:45
DX: G43.009 Migraine without aura, not intractable, without status migrainosus (principal); F17.200 Nicotine dependence, unspecified, uncomplicated; Z87.440 Personal history of urinary (tract) infections; Z87.898 Personal history of other specified conditions; Z83.3 Family history of diabetes mellitus; Z82.49 Family history of ischemic heart disease and other diseases of the circulatory system; Z83.79 Family history of other diseases of the digestive system; Z84.1 Family history of disorders of kidney and ureter; Z83.6 Family history of other diseases of the respiratory system